=== PATIENT | female | born 1975 | race Caucasian/White ===

== ENCOUNTER → 2016-09-15 | Outpatient (REF) | payer BC | LOC: M LABNEURO 13:01 | PROVIDERS: ATTEND Internal Medicine | DX: E16.2 Hypoglycemia, unspecified (principal) ==

== ENCOUNTER 2017-05-06 12:31 | Emergency (ER) | payer BC ==
[~2017-05-06] VITALS: Ht 162.6 cm; Wt 75.0 kg
[2017-05-06] MEDS ORDERED: ZONI25CA2 (12:52)
[2017-05-06] MEDS ORDERED: ROPI0.25 (12:52)
[2017-05-06] MEDS ORDERED: ACAR25TA2 (12:52)
[2017-05-06] MEDS ORDERED: PANT20TA (12:52)
[2017-05-06] MEDS ORDERED: VENL75CA47 (12:52)
[2017-05-06] MEDS ORDERED: MYCO250C (12:52)
[2017-05-06] MEDS ORDERED: BUPR150T3 (12:52)
[2017-05-06] MEDS ORDERED: VALA1TAB2 (12:52)
[2017-05-06] MEDS ORDERED: FIORCAP3 PO (12:52)
[2017-05-06] MEDS ORDERED: diphenhydrAMINE INJ 50MG/ML VIAL (J1200) IV STA (13:06)
[2017-05-06] MEDS ORDERED: METOCLOPRAMIDE INJ 10MG/2ML VIAL (J2765) IV ONE (13:15)
[2017-05-06] MEDS ORDERED: NS 1,000 ML IV ONE (13:15)
[2017-05-06] MEDS ORDERED: methylPREDNISolone INJ 125 MG/2 ML VIAL (J2930) IV ONE (13:15)
[2017-05-06 13:42] LABS: BASO # 0.1 K/mm3 (0.0-0.2); BASO % 1.6 % (0.0-1.0); EOS # 0.1 K/mm3 (0.0-0.50); EOS % 2.5 % (0.0-3.0); LARGE UNSTAINED CELL # 0.1 K/mm3 (0.0-0.4); LARGE UNSTAINED CELL % 2.2 % (0.0-4.0); LYMPH # 1.3 K/mm3 (1.5-4.5); LYMPH % 32.7 % (24.0-44.0); MEAN CORPUSCULAR HEMOGLOBIN 35.6 pg (27.0-33.0); MEAN CORPUSCULAR HGB CONC 35.1 g/dl (32.0-36.5); MEAN CORPUSCULAR VOLUME 101.4 fl (80.0-96.0); MONO # 0.2 K/mm3 (0.0-0.8); MONO % 5.6 % (0.0-5.0); NEUTROPHILS # 2.3 K/mm3 (1.8-7.7); NEUTROPHILS % 55.4 % (36.0-66.0); PLATELET COUNT, AUTOMATED 222 k/mm3 (150-450); RED CELL DISTRIBUTION WIDTH 12.7 % (11.5-14.5); WHITE BLOOD COUNT 4.1 K/mm3 (4.0-10.0)
[2017-05-06 14:02] LABS: ERYTHROCYTE SEDIMENTATION RATE 8 mm/hr (0-20)
[2017-05-06 14:05] LABS: ANION GAP 7 MEQ/L (8-16); BLOOD UREA NITROGEN 7 MG/DL (7-18); CALCIUM LEVEL 7.8 MG/DL (8.5-10.1); CARBON DIOXIDE LEVEL 26 MEQ/L (21-32); CHLORIDE LEVEL 108 MEQ/L (98-107); CREATININE FOR GFR 0.75 MG/DL (0.55-1.02); GLOMERULAR FILTRATION RATE > 60.0 (>58); GLUCOSE, FASTING 80 MG/DL (70-105); POTASSIUM SERUM 4.3 MEQ/L (3.5-5.1); SODIUM LEVEL 141 MEQ/L (136-145)
[2017-05-06] MEDS ORDERED: KETOROLAC 30 MG/ML VIAL (J1885) IV ONE (14:30)
--- NOTE | 2017-05-06 14:39 | REP ---
CT BRAIN WITHOUT IV CONTRAST: CT brain is performed without IV contrast. The ventricles are normal in size and position with no midline shift or mass effect. Mcclure/white differentiation is well maintained. There is no acute hemorrhage. There is no extra-axial fluid collection. Bone window examination is unremarkable. IMPRESSION: Negative noncontrast CT brain. Signed by Ever Mcclure MD 05/06/2017 07:18 P
[2017-05-06 14:54] VITALS: BP 95/55
[2017-05-09 00:06] LABS: Lyme Disease IgG/IgM Antibodie <0.91 ISR (0.00-0.90); Lyme Disease IgM Ab Quantitati <0.80 index (0.00-0.79)
== END 2017-05-06 14:56 | disposition home or self-care (01) ==
LOC: M ED 12:31
DX: G43.909 Migraine, unspecified, not intractable, without status migrainosus (principal); D68.62 Lupus anticoagulant syndrome; F33.9 Major depressive disorder, recurrent, unspecified; Z79.899 Other long term (current) drug therapy; Z88.1 Allergy status to other antibiotic agents; Z88.8 Allergy status to other drugs, medicaments and biological substances; Z91.040 Latex allergy status
CPT/HCPCS: 70450; 80048; 85025; 85610; 85652; 85730; 86140; 86617; 96361; 96374; 96375; 99283; J1200; J1885; J2765; J2930

== ENCOUNTER → 2017-05-10 | Outpatient (REF) | payer BC ==
[~2017-05-10] MED LIST: ACAR25TA2; BUPR150T3; FIORCAP3 PO; MYCO250C; PANT20TA; ROPI0.25; VALA1TAB2; VENL75CA47; ZONI25CA2
[2017-05-10 19:20] LABS: BASO % 0.4 % (0.0-1.0); EOS # 0.1 10^3/uL (0.0-0.50); EOS % 1.1 % (0.0-3.0); IMMATURE GRANULOCYTE % 0.2 % (0-0); LYMPH # 2.7 10^3/uL (1.5-4.5); LYMPH % 26.4 % (24.0-44.0); MEAN CORPUSCULAR HEMOGLOBIN 34.5 pg (27.0-33.0); MEAN CORPUSCULAR HGB CONC 33.7 g/dl (32.0-36.5); MEAN CORPUSCULAR VOLUME 102.5 fl (80.0-96.0); MONO # 0.8 10^3/uL (0.0-0.8); MONO % 7.7 % (0.0-5.0); NEUTROPHILS # 6.6 10^3/uL (1.8-7.7); NEUTROPHILS % 64.2 % (36.0-66.0); PLATELET COUNT, AUTOMATED 265 10^3/uL (150-450); RED CELL DISTRIBUTION WIDTH 12.8 % (11.5-14.5); WHITE BLOOD COUNT 10.2 10^3/uL (4.0-10.0)
[2017-05-10 19:39] LABS: ALBUMIN 4.2 GM/DL (3.2-5.2); ALKALINE PHOSPHATASE 63 U/L (45-117); ALT/SGPT 37 U/L (12-78); ANION GAP 6 MEQ/L (8-16); AST/SGOT 14 U/L (15-37); BILIRUBIN,TOTAL 0.2 MG/DL (0.2-1.0); BLOOD UREA NITROGEN 8 MG/DL (7-18); CALCIUM LEVEL 9.5 MG/DL (8.5-10.1); CARBON DIOXIDE LEVEL 27 MEQ/L (21-32); CHLORIDE LEVEL 105 MEQ/L (98-107); CREATININE FOR GFR 0.81 MG/DL (0.55-1.02); GLOMERULAR FILTRATION RATE > 60.0 (>58); GLUCOSE, FASTING 86 MG/DL (70-105); POTASSIUM SERUM 3.8 MEQ/L (3.5-5.1); SODIUM LEVEL 138 MEQ/L (136-145); TOTAL PROTEIN 7.7 GM/DL (6.4-8.2)
[2017-05-10 20:45] LABS: ERYTHROCYTE SEDIMENTATION RATE 13 mm/hr (0-20)
== END ==
LOC: M LAB REF 18:25
PROVIDERS: ATTEND Psychiatry & Neurology Neurology
DX: R51 Headache (principal)

== ENCOUNTER → 2018-03-12 | Outpatient (REF) | payer OTHER ==
[2018-03-12 12:55] LABS: FERRITIN 15 NG/ML (8-252)
[2018-03-12 12:59] LABS: FOLATE 14.3 NG/ML; VITAMIN B12 LEVEL 268 PG/ML
== END ==
LOC: M LAB REF 11:57
DX: Z98.84 Bariatric surgery status (principal)

== ENCOUNTER → 2018-03-12 | Outpatient (REF) | payer OTHER ==
[2018-03-12 18:21] LABS: TOTAL 25(OH) VITAMIN D 26.8 NG/ML (30.0-100.0)
== END ==
LOC: M LAB REF 17:00
DX: Z98.84 Bariatric surgery status (principal)

== ENCOUNTER → 2018-11-19 | Outpatient (REF) | payer BC ==
[~2018-11-19] MED LIST changes: -PANT20TA; +PANT20TA2; -ROPI0.25; +ROPI0.253
[2018-11-19 12:32] LABS: HEMATOCRIT 36.6 % (36.0-47.0); MEAN CORPUSCULAR HEMOGLOBIN 32.2 pg (27.0-33.0); MEAN CORPUSCULAR HGB CONC 32.8 g/dl (32.0-36.5); MEAN CORPUSCULAR VOLUME 98.1 fl (80.0-96.0); PLATELET COUNT, AUTOMATED 235 10^3/uL (150-450); RED BLOOD COUNT 3.73 10^6/uL (4.00-5.40); WHITE BLOOD COUNT 4.3 10^3/uL (4.0-10.0)
[2018-11-19 12:39] LABS: ALT/SGPT 31 U/L (12-78); BLOOD UREA NITROGEN 6 MG/DL (7-18); C REACTIVE PROTEIN QUANTITATIV < 0.30 MG/DL (0.00-0.30); CALCIUM LEVEL 8.7 MG/DL (8.5-10.1); CARBON DIOXIDE LEVEL 28 MEQ/L (21-32); CHLORIDE LEVEL 106 MEQ/L (98-107); CHOLESTEROL LEVEL 182 MG/DL (<200); CHOLESTEROL RISK RATIO 1.915 (<5); COMPLEMENT C3 97 MG/DL (90-180); COMPLEMENT C4 22 MG/DL (10-40); CREATININE FOR GFR 0.74 MG/DL (0.55-1.30); GLOMERULAR FILTRATION RATE > 60.0 (>58); GLUCOSE, FASTING 92 MG/DL (70-100); HDL CHOLESTEROL 95 MG/DL (>40); LDL CHOLESTEROL 72 MG/DL (<100); NON-HDL-C 87 MG/DL; POTASSIUM SERUM 4.2 MEQ/L (3.5-5.1); SODIUM LEVEL 138 MEQ/L (136-145); TRIGLYCERIDES LEVEL 73 MG/DL (<150)
[2018-11-19 13:09] LABS: ERYTHROCYTE SEDIMENTATION RATE 17 mm/hr (0-20)
[2018-11-21 00:07] LABS: ANA (HEP2) Positive (.); ANTI DOUBLE STRAND-DNA AB 3 IU/mL (0-9)
== END ==
LOC: M LABDRAWP 11:24
PROVIDERS: ATTEND Internal Medicine
DX: M32.10 Systemic lupus erythematosus, organ or system involvement unspecified (principal); D50.9 Iron deficiency anemia, unspecified; M06.4 Inflammatory polyarthropathy

== ENCOUNTER → 2019-03-22 | Outpatient (CLI) | payer BC ==
[~2019-03-22] MED LIST changes: -VALA1TAB2; +VALA1TAB64; +ZONI25CA13; -ZONI25CA2
[2019-03-22 17:08] LABS: BASO # 0.1 10^3/uL (0.0-0.2); BASO % 1.8 % (0.0-1.0); EOS # 0.1 10^3/uL (0.0-0.50); EOS % 1.6 % (0.0-3.0); HEMATOCRIT 37.4 % (36.0-47.0); HEMOGLOBIN 12.3 g/dl (12.0-15.5); LYMPH # 1.6 10^3/uL (1.5-4.5); LYMPH % 37.5 % (24.0-44.0); MEAN CORPUSCULAR HEMOGLOBIN 32.5 pg (27.0-33.0); MEAN CORPUSCULAR HGB CONC 32.9 g/dl (32.0-36.5); MEAN CORPUSCULAR VOLUME 98.7 fl (80.0-96.0); MONO # 0.4 10^3/uL (0.0-0.8); MONO % 9.7 % (0.0-5.0); NEUTROPHILS # 2.1 10^3/uL (1.8-7.7); NEUTROPHILS % 49.2 % (36.0-66.0); PLATELET COUNT, AUTOMATED 253 10^3/uL (150-450); RED BLOOD COUNT 3.79 10^6/uL (4.00-5.40); WHITE BLOOD COUNT 4.4 10^3/uL (4.0-10.0)
[2019-03-22 17:19] LABS: THYROID STIMULATING HORMONE 1.28 uIU/ML (0.358-3.740)
[2019-03-24 10:56] LABS: TOTAL 25(OH) VITAMIN D 21.3 NG/ML (30.0-100.0)
[2019-03-24 11:37] LABS: FOLATE 7.3 NG/ML
== END ==
LOC: M ADAMS 10:50
PROVIDERS: ATTEND Internal Medicine
DX: D50.9 Iron deficiency anemia, unspecified (principal)

== ENCOUNTER 2019-10-22 16:47 | Emergency (ER) | payer BC ==
[~2019-10-22] VITALS: Ht 162.6 cm; Wt 76.3 kg
[~2019-10-22 16:47] MED LIST changes: +VALA1TAB5; -VALA1TAB64
[2019-10-22] MEDS ORDERED: [UNRECOGNIZED DRUG - CODE] (16:57)
--- NOTE | 2019-10-22 18:14 | REPVR ---
PROCEDURE INFORMATION: Exam: CT Head Without Contrast Exam date and time: 10/22/2019 5:37 PM Age: 44 years old Clinical indication: Pain; Headache; Additional info: Dizziness TECHNIQUE: Imaging protocol: Computed tomography of the head without contrast. Radiation optimization: All CT scans at this facility use at least one of these dose optimization techniques: automated exposure control; mA and/or kV adjustment per patient size (includes targeted exams where dose is matched to clinical indication); or iterative reconstruction. COMPARISON: CT Head without contrast 05/06/2017 1:09 PM FINDINGS: Brain: No acute intracranial hemorrhage, cerebral edema, or midline shift. Ventricles: No hydrocephalus. Bones/joints: No acute fracture. Sinuses: No acute sinusitis. Mastoid air cells: Visualized mastoid air cells are well aerated. Soft tissues: Unremarkable. IMPRESSION: No acute intracranial abnormality. Electronically signed by: See Alejandre On 10/22/2019 18:14:38 PM
[2019-10-22 18:33] LABS: BASO # 0.1 10^3/uL (0.0-0.2); BASO % 1.4 % (0.0-1.0); EOS # 0.1 10^3/uL (0.0-0.5); EOS % 2.1 % (0.0-3.0); HEMATOCRIT 33.3 % (36.0-47.0); HEMOGLOBIN 10.8 g/dl (12.0-15.5); LYMPH # 1.8 10^3/uL (1.5-5.0); LYMPH % 43.9 % (24.0-44.0); MEAN CORPUSCULAR HEMOGLOBIN 31.4 pg (27.0-33.0); MEAN CORPUSCULAR HGB CONC 32.4 g/dl (32.0-36.5); MEAN CORPUSCULAR VOLUME 96.8 fl (80.0-96.0); MONO # 0.5 10^3/uL (0.0-0.8); MONO % 10.7 % (0.0-5.0); NEUTROPHILS # 1.7 10^3/uL (1.5-8.5); NEUTROPHILS % 41.7 % (36.0-66.0); PLATELET COUNT, AUTOMATED 232 10^3/uL (150-450); RED BLOOD COUNT 3.44 10^6/uL (4.00-5.40); WHITE BLOOD COUNT 4.2 10^3/uL (4.0-10.0)
[2019-10-22] MEDS ORDERED: TROPICAMIDE 0.5% OPHTH SOLN 15 ML OD ONE (19:30)
[2019-10-22] MEDS ORDERED: TETRACAINE 0.5% OPHTH SOLN 4ML OD ONE (19:30)
[2019-10-22 20:45] LABS: ALBUMIN 3.8 GM/DL (3.2-5.2); ALT/SGPT 37 U/L (12-78); BILIRUBIN,DIRECT < 0.1 MG/DL (0.0-0.2); BILIRUBIN,TOTAL 0.2 MG/DL (0.2-1.0); BLOOD UREA NITROGEN 9 MG/DL (7-18); CALCIUM LEVEL 8.8 MG/DL (8.5-10.1); CARBON DIOXIDE LEVEL 28 MEQ/L (21-32); CHLORIDE LEVEL 107 MEQ/L (98-107); CREATININE FOR GFR 0.64 MG/DL (0.55-1.30); GLOMERULAR FILTRATION RATE > 60.0 (>58); GLUCOSE, FASTING 82 MG/DL (70-100); POTASSIUM SERUM 4.1 MEQ/L (3.5-5.1); SODIUM LEVEL 139 MEQ/L (136-145)
--- NOTE | 2019-10-22 21:02 | ECGEPIP ---
[facility] - ED Test Date: 2019-10-22 Pat Name: CRISTIANA MANUEL Department: Room: - Gender: Female Manager Rehab: ab : 1975 Requested By: BERNABE Mehta Order Number: [id number] Reading MD: Mahi Mckeon Measurements Intervals [place] Rate: 64 P: 18 [place]: 129 QRS: 39 QRSD: 88 T: 31 QT: 428 QTc: 445 Interpretive Statements SINUS RHYTHM NO PRIOR Electronically Signed on 10-22-2019 21:02:01 EDT by Mahi Mckeon
[2019-10-22 21:10] LABS: ERYTHROCYTE SEDIMENTATION RATE 20 mm/hr (0-20)
[2019-10-22] MEDS ORDERED: NS 1,000 ML IV ONE (21:15)
[2019-10-22 22:30] VITALS: BP 115/69; O2SAT 100
[2019-10-22] MEDS ORDERED: KETOROLAC 30 MG/ML VIAL (J1885) IV ONE (22:45)
== END 2019-10-22 23:09 | disposition home or self-care (01) ==
LOC: M ED 16:47
DX: G43.819 Other migraine, intractable, without status migrainosus (principal); R42 Dizziness and giddiness; M32.9 Systemic lupus erythematosus, unspecified; K75.4 Autoimmune hepatitis; F32.9 Major depressive disorder, single episode, unspecified; F41.9 Anxiety disorder, unspecified; Z88.8 Allergy status to other drugs, medicaments and biological substances; Z91.040 Latex allergy status
CPT/HCPCS: 70450; 80047; 80048; 80076; 85025; 85652; 93005; 96361; 96374; 99285; J1885

== ENCOUNTER → 2019-12-19 | Outpatient (CLI) | payer BC ==
[~2019-12-19] MED LIST changes: +[UNRECOGNIZED DRUG - CODE]
[2019-12-19 18:45] LABS: BASO # 0.1 10^3/uL (0.0-0.2); BASO % 1.6 % (0.0-1.0); EOS # 0.1 10^3/uL (0.0-0.5); EOS % 1.3 % (0.0-3.0); HEMATOCRIT 36.4 % (36.0-47.0); HEMOGLOBIN 11.8 g/dl (12.0-15.5); LYMPH # 1.7 10^3/uL (1.5-5.0); LYMPH % 37.7 % (24.0-44.0); MEAN CORPUSCULAR HEMOGLOBIN 32.4 pg (27.0-33.0); MEAN CORPUSCULAR HGB CONC 32.4 g/dl (32.0-36.5); MONO # 0.5 10^3/uL (0.0-0.8); MONO % 11.5 % (0.0-5.0); NEUTROPHILS # 2.2 10^3/uL (1.5-8.5); NEUTROPHILS % 47.9 % (36.0-66.0); PLATELET COUNT, AUTOMATED 240 10^3/uL (150-450); RED BLOOD COUNT 3.64 10^6/uL (4.00-5.40); WHITE BLOOD COUNT 4.5 10^3/uL (4.0-10.0)
[2019-12-19 19:09] LABS: ALT/SGPT 27 U/L (12-78); C REACTIVE PROTEIN QUANTITATIV 0.31 MG/DL (0.00-0.30); COMPLEMENT C3 102 MG/DL (90-180); COMPLEMENT C4 21 MG/DL (10-40); CREATININE FOR GFR 0.74 MG/DL (0.55-1.30); GLOMERULAR FILTRATION RATE > 60.0 (>58)
[2019-12-19 19:12] LABS: ERYTHROCYTE SEDIMENTATION RATE 16 mm/hr (0-20)
[2019-12-23 14:11] LABS: ANTI DS-DNA AB Negative (Negative)
== END ==
LOC: M PLALAB 15:27
PROVIDERS: ATTEND Physician Assistant Medical
DX: M32.9 Systemic lupus erythematosus, unspecified (principal); Z79.899 Other long term (current) drug therapy

== ENCOUNTER → 2020-05-18 | Outpatient (CLI) | payer BC ==
[~2020-05-18] MED LIST changes: -PANT20TA2; +PANT20TA6
[2020-05-18 08:13] LABS: BASO # 0.1 10^3/uL (0.0-0.2); BASO % 1.6 % (0.0-1.0); EOS # 0.1 10^3/uL (0.0-0.5); EOS % 2.1 % (0.0-3.0); HEMATOCRIT 33.7 % (36.0-47.0); HEMOGLOBIN 10.7 g/dl (12.0-15.5); LYMPH # 1.5 10^3/uL (1.5-5.0); LYMPH % 40.2 % (24.0-44.0); MEAN CORPUSCULAR HEMOGLOBIN 31.3 pg (27.0-33.0); MEAN CORPUSCULAR HGB CONC 31.8 g/dl (32.0-36.5); MEAN CORPUSCULAR VOLUME 98.5 fl (80.0-96.0); MONO # 0.4 10^3/uL (0.0-0.8); MONO % 11.3 % (0.0-5.0); NEUTROPHILS # 1.7 10^3/uL (1.5-8.5); NEUTROPHILS % 44.3 % (36.0-66.0); PLATELET COUNT, AUTOMATED 257 10^3/uL (150-450); RED BLOOD COUNT 3.42 10^6/uL (4.00-5.40); WHITE BLOOD COUNT 3.7 10^3/uL (4.0-10.0)
[2020-05-18 08:53] LABS: ALBUMIN 3.7 GM/DL (3.2-5.2); ALT/SGPT 30 U/L (12-78); BILIRUBIN,TOTAL 0.4 MG/DL (0.2-1.0); BLOOD UREA NITROGEN 10 MG/DL (7-18); CALCIUM LEVEL 8.7 MG/DL (8.5-10.1); CARBON DIOXIDE LEVEL 30 MEQ/L (21-32); CHLORIDE LEVEL 104 MEQ/L (98-107); CHOLESTEROL LEVEL 201 MG/DL (<200); CHOLESTEROL RISK RATIO 1.717 (<5); CREATININE FOR GFR 0.91 MG/DL (0.55-1.30); FERRITIN 9 NG/ML (8-252); GLOMERULAR FILTRATION RATE > 60.0 (>58); GLUCOSE, FASTING 87 MG/DL (70-100); HDL CHOLESTEROL 117 MG/DL (>40); LDL CHOLESTEROL 76 MG/DL (<100); NON-HDL-C 84 MG/DL; POTASSIUM SERUM 4.1 MEQ/L (3.5-5.1); SODIUM LEVEL 139 MEQ/L (136-145); TOTAL PROTEIN 6.9 GM/DL (6.4-8.2); TRIGLYCERIDES LEVEL 39 MG/DL (<150)
[2020-05-18 08:54] LABS: TOTAL 25(OH) VITAMIN D 30.4 NG/ML (30.0-100.0); VITAMIN B12 LEVEL 215 PG/ML
[2020-05-18 08:55] LABS: FOLATE 5.8 NG/ML
[2020-05-19 10:16] LABS: MAGNESIUM LEVEL 2.3 MG/DL (1.8-2.4)
== END ==
LOC: M LAB 07:13
PROVIDERS: ATTEND Internal Medicine
DX: G25.81 Restless legs syndrome (principal); D64.9 Anemia, unspecified; R01.1 Cardiac murmur, unspecified; R60.0 Localized edema; E55.9 Vitamin D deficiency, unspecified

== ENCOUNTER 2020-06-20 01:05 | Emergency (ER) | payer BC ==
[~2020-06-20] VITALS: Ht 162.6 cm; Wt 78.4 kg
[2020-06-20 01:06] VITALS: BP 149/74
--- NOTE | 2020-06-20 02:42 | REPVR ---
PROCEDURE INFORMATION: Exam: XR Left Shoulder Exam date and time: 06/20/2020 1:41 AM Age: 45 years old Clinical indication: Fall; Additional info: Fall, obvious dislocation TECHNIQUE: Imaging protocol: XR Left shoulder. Views: 2 or more views. COMPARISON: No relevant prior studies available. FINDINGS: Bones/joints: There is no fracture or dislocation of the left shoulder. The glenohumeral alignment is anatomic. No widening of the acromioclavicular joint space or coracoclavicular space is identified. No arthropathy is noted. The acromion has a concave shape (type II acromion). The acromial orientation is mildly laterally downsloping with respect to the distal end of the clavicle. Soft tissues: Unremarkable. No calcific densities are seen in the rotator cuff or subacromial subdeltoid bursa to suggest calcific tendinitis or calcific subacromial subdeltoid bursitis. IMPRESSION: No fracture or dislocation of the left shoulder. Electronically signed by: Donovan Cameron On 06/20/2020 02:41:53 AM
== END 2020-06-20 07:49 | disposition home or self-care (01) ==
LOC: M ED 01:05
DX: S20.212A Contusion of left front wall of thorax, initial encounter (principal); X58.XXXA Exposure to other specified factors, initial encounter; Y92.009 Unspecified place in unspecified non-institutional (private) residence as the place of occurrence of the external cause; F41.1 Generalized anxiety disorder; F32.9 Major depressive disorder, single episode, unspecified; Z88.1 Allergy status to other antibiotic agents; Z88.8 Allergy status to other drugs, medicaments and biological substances; Z91.040 Latex allergy status; Z79.899 Other long term (current) drug therapy

== ENCOUNTER → 2020-08-16 | Outpatient (CLI) | payer SELFPAY ==
[~2020-08-16] MED LIST changes: +[UNRECOGNIZED DRUG - CODE]; -[UNRECOGNIZED DRUG - CODE]
== END ==
LOC: M LABSMTC 11:41
PROVIDERS: ATTEND Pediatrics
DX: Z20.828 Contact with and (suspected) exposure to other viral communicable diseases (principal)

== ENCOUNTER → 2020-08-30 | Outpatient (REF) | payer BC ==
[~2020-08-30] MED LIST changes: -BUPR150T3; +BUPR150T4
[2020-08-30 12:18] LABS: BASO # 0.1 10^3/uL (0.0-0.2); BASO % 1.4 % (0.0-1.0); EOS # 0.1 10^3/uL (0.0-0.5); EOS % 2.3 % (0.0-3.0); HEMATOCRIT 35.3 % (36.0-47.0); HEMOGLOBIN 11.4 g/dl (12.0-15.5); LYMPH # 1.8 10^3/uL (1.5-5.0); LYMPH % 41.3 % (24.0-44.0); MEAN CORPUSCULAR HEMOGLOBIN 32.4 pg (27.0-33.0); MEAN CORPUSCULAR HGB CONC 32.3 g/dl (32.0-36.5); MEAN CORPUSCULAR VOLUME 100.3 fl (80.0-96.0); MONO # 0.5 10^3/uL (0.0-0.8); MONO % 10.3 % (0.0-5.0); NEUTROPHILS % 44.5 % (36.0-66.0); PLATELET COUNT, AUTOMATED 254 10^3/uL (150-450); RED BLOOD COUNT 3.52 10^6/uL (4.00-5.40); WHITE BLOOD COUNT 4.4 10^3/uL (4.0-10.0)
[2020-08-30 13:22] LABS: BLOOD UREA NITROGEN 8 MG/DL (7-18); CALCIUM LEVEL 8.8 MG/DL (8.5-10.1); CARBON DIOXIDE LEVEL 27 MEQ/L (21-32); CHLORIDE LEVEL 105 MEQ/L (98-107); CREATININE FOR GFR 0.64 MG/DL (0.55-1.30); FERRITIN 8 NG/ML (8-252); GLOMERULAR FILTRATION RATE > 60.0 (>58); GLUCOSE, FASTING 83 MG/DL (70-100); MAGNESIUM LEVEL 2.1 MG/DL (1.8-2.4); POTASSIUM SERUM 4.3 MEQ/L (3.5-5.1); SODIUM LEVEL 137 MEQ/L (136-145)
== END ==
LOC: M LAB REF 11:27
PROVIDERS: ATTEND Internal Medicine
DX: Z00.00 Encounter for general adult medical examination without abnormal findings (principal); D64.9 Anemia, unspecified; Z98.84 Bariatric surgery status

== ENCOUNTER → 2021-01-23 | Outpatient (CLI) | payer BC ==
[~2021-01-23] MED LIST changes: +BUPR150T12; -BUPR150T4; +HYDR-3490 PO; +THERTAB52 PO; +VITATAB74 PO
== END ==
LOC: M LABSMTC 09:05
PROVIDERS: ATTEND Anesthesiology
DX: Z01.812 Encounter for preprocedural laboratory examination (principal); Z20.822 Contact with and (suspected) exposure to COVID-19

== ENCOUNTER 2021-01-28 11:48 | Day surgery (SDC) | payer BC ==
[2021-01-28] VITALS (7 sets, daily range): BP systolic 117–138; BP diastolic 64–73
[~2021-01-28] VITALS: Ht 165.1 cm; Wt 74.8 kg
[2021-01-28] MEDS: buPROPion **XL** TABLET 150MG (WELLBUTRIN XL) PO SCH (09:00)
[~2021-01-28 11:48] MED LIST changes: -BUPR150T12; +BUPR150T12 PO; +LIDOCAINE 1% MDV 20ML VIAL SQ PRN; +LR 1,000 ML IV ONE; -MYCO250C; +MYCO250C PO; -VENL75CA47; +VENL75CA47 PO; +ceFAZolin SOD 2 GM in IV 1 EA IV ONE
[2021-01-28] MEDS ORDERED: MIDAZOLAM INJ 2MG/2ML VIAL (J2250 PER 1MG) As Ordered ONE (12:25)
[2021-01-28] MEDS ORDERED: fentaNYL 100 MCG/2 ML INJECTION (J3010) As Ordered ONE ×2 (12:26→16:20)
[2021-01-28 12:39] LABS: HEMATOCRIT 37.3 % (36.0-47.0); HEMOGLOBIN 12.4 g/dl (12.0-15.5); MEAN CORPUSCULAR HEMOGLOBIN 32.3 pg (27.0-33.0); MEAN CORPUSCULAR HGB CONC 33.2 g/dl (32.0-36.5); MEAN CORPUSCULAR VOLUME 97.1 fl (80.0-96.0); PLATELET COUNT, AUTOMATED 280 10^3/uL (150-450); RED BLOOD COUNT 3.84 10^6/uL (4.00-5.40); WHITE BLOOD COUNT 4.2 10^3/uL (4.0-10.0)
[2021-01-28] MEDS ORDERED: LIDOCAINE 2% 100MG/5ML SDV (FOR ANES.) As Ordered ONE (13:04)
[2021-01-28] MEDS ORDERED: SCOPOLAMINE 1MG TRANSDERMAL PATCH As Ordered ONE (13:26)
[2021-01-28] MEDS ORDERED: propofoL 200 MG/20 ML VIAL As Ordered ONE ×2 (13:43→13:49)
[2021-01-28] MEDS ORDERED: METOCLOPRAMIDE INJ 10MG/2ML VIAL (J2765 PER 1) As Ordered ONE (13:44)
[2021-01-28] MEDS ORDERED: ROCURONIUM BROMIDE 50 MG/5 ML VIAL As Ordered ONE ×2 (13:44→14:40)
[2021-01-28] MEDS ORDERED: ONDANSETRON 4MG/2ML VIAL As Ordered ONE (13:44)
[2021-01-28] MEDS ORDERED: dexameTHASONE 4 MG/ML 1ML VIAL (J1100 PER 1MG) As Ordered ONE (13:44)
[2021-01-28] MEDS ORDERED: ACETAMINOPHEN 1000MG 100ML IV BTL (OFIRMEV) (J0131 PER 10MG) As Ordered ONE (13:48)
[2021-01-28] MEDS ORDERED: HYDROmorphone HCL 2 MG/ML 1ML VIAL (J1170) As Ordered ONE (14:03)
[2021-01-28] MEDS ORDERED: MORPHINE 1MG/ML IN 0.9% NACL 100ML IV BAG As Ordered ONE (16:19)
[2021-01-28] MEDS ORDERED: diphenhydrAMINE 50MG/ML VIAL (J1200) IV PRN (16:25)
[2021-01-28] MEDS ORDERED: METOCLOPRAMIDE INJ 10MG/2ML VIAL (J2765 PER 1) IV PRN (16:25)
[2021-01-28] MEDS ORDERED: ONDANSETRON 4MG/2ML VIAL IV PRN (16:25)
[2021-01-28] MEDS ORDERED: LR 1,000 ML IV SCH (16:25)
[2021-01-28] MEDS ORDERED: fentaNYL 100 MCG/2 ML INJECTION (J3010) IV PRN (16:25)
[2021-01-28] MEDS ORDERED: NS 1,000 ML IV SCH (16:25)
[2021-01-28] MEDS ORDERED: MORPHINE 1MG/ML IN 0.9% NACL 100ML IV BAG IV PRN (16:25)
[2021-01-28] MEDS ORDERED: EPIDURAL/PCA KEYS XX PRN (16:25)
[2021-01-28] MEDS ORDERED: NALOXONE INJ 0.4MG/1ML VIAL (J2310 PER 1MG) IV PRN (16:25)
[2021-01-28] MEDS ORDERED: NALBUPHINE HCL 10 MG/ML AMP (J2300) IV PRN (16:25)
[2021-01-28] MEDS ORDERED: PERCOCET 5MG/325MG TAB PO PRN (16:25)
[2021-01-28] MEDS ORDERED: IBUPROFEN 600MG TAB PO PRN (16:30)
[2021-01-28] MEDS ORDERED: PRAMIPEXOLE 0.25 MG TAB PO SCH (21:00)
[2021-01-29] MEDS: LR 1,000 ML IV SCH ×2 (00:30→01:00)
[2021-01-29 02:00] VITALS: BP 100/58
[2021-01-29 06:00] VITALS: BP 120/66
[2021-01-29] MEDS ORDERED: NORCO, ANEXSIA 5/325MG TABLET (HYDROcodone/ACETAMINOPHEN) PO PRN (06:00)
[2021-01-29 08:00] VITALS: BP 121/59
[2021-01-29 08:05] LABS: HEMATOCRIT 33.3 % (36.0-47.0); HEMOGLOBIN 10.9 g/dl (12.0-15.5); MEAN CORPUSCULAR HEMOGLOBIN 32.3 pg (27.0-33.0); MEAN CORPUSCULAR HGB CONC 32.7 g/dl (32.0-36.5); MEAN CORPUSCULAR VOLUME 98.8 fl (80.0-96.0); PLATELET COUNT, AUTOMATED 223 10^3/uL (150-450); RED BLOOD COUNT 3.37 10^6/uL (4.00-5.40); WHITE BLOOD COUNT 6.2 10^3/uL (4.0-10.0)
[2021-01-29] MEDS ORDERED: VENLAFAXINE **XR** 75MG CAPSULE PO SCH (09:00)
[2021-01-29] MEDS: buPROPion **XL** TABLET 150MG (WELLBUTRIN XL) PO SCH (10:02)
[2021-01-29] MEDS ORDERED: IBUP-1114 PO (10:11)
[2021-01-29] MEDS ORDERED: HYDR-3715 PO (10:11)
--- NOTE | 2021-01-31 08:21 | RO ---
OPERATIVE NOTE DATE OF OPERATION: 01/28/2021 PREOPERATIVE DIAGNOSIS AND INDICATIONS FOR SURGERY: Bleeding and pain, failed conservative efforts. POSTOPERATIVE DIAGNOSIS: Bleeding and pain, failed conservative efforts. 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 PROCEDURE: Robotic-assisted hysterectomy with right salpingo-oophorectomy and left removal of tube. She only had the distal tube on the left remaining. She kept her left ovary and, of course, she had some scar tissue from her previous tubal ligation but we did remove the fimbria and the proximal stump. SURGEON: Harriet Aggarwal MD DIP TANKER: None. ANESTHESIA: General endotracheal anesthesia. BRIEF DESCRIPTION OF PROCEDURE AND FINDINGS: Lanny was brought to the operating room where sufficient general endotracheal anesthesia was induced. She was prepped, draped and positioned in the usual sterile fashion. Uterine manipulator placed and Rush catheter with the ability to back-fill was placed and attention was then turned to the abdomen. A transverse incision was made below the umbilicus along the line of some of her previous surgery scars. Sharp and blunt dissection were continued through the subcutaneous tissue to the level of the rectus fascia which was elevated to the wound, transversely incised, secured with 0 Vicryl retention sutures, and then the peritoneal cavity was entered under direct visualization. We were also able to palpate with the pinkie and feel to the left side of the umbilicus and extending inferior and superior to the umbilicus there was considerable adhesions. We were able to place the Flaquita under direct visualization and CO2 insufflation was then begun. With the camera, we were able to see that we had access to the pelvis but not to the left upper quadrant and those adhesions extended low enough that we needed to work from the right side to see where the left side lower port could be placed. But, we placed the right-sided port and then superiorly on the right placed the doctor's assistant port there instead of on the left side because of those adhesions. We were able to do that in an uncomplicated fashion and then using the lower right side port we were able to see to place the left side port. These are extensive adhesions. She was somewhat aware that she had them. They were dense and appeared vascular and we worked around them. There did not appear to be any possibility of a volvulus or long-term problem there. There was not a hernia that I could see, just tissue plastered to the anterior abdominal wall. Pictures were taken to document this. We also saw adhesions over the lower uterine segment bringing the bladder up over the uterus and, of course, scarring from her previous tubal ligation essentially eliminating the mid portion of both tubes. We went ahead with Trendelenburg and docked the robot. It should be noted that the peritoneal surfaces themselves were normal and shiny in appearance and there was no ascites, exudate nor excrescences, just the adhesions as already noted and the scarring as expected with her previous surgical history. This did mean we had to work very close to the tissues. The patient is not tremendously tall and the adhesions would extend over into our view so we had to work below them, which was very, very close to the uterus but it was certainly possible to do. Working from the robot console after the robot was docked, we isolated the distal portion of the fimbria of the left tube and went ahead and removed that and passed it out the assisted port. Then, isolated the uteroovarian suspensory ligament, cauterized and transected this and then worked through the broad ligament to the round where we cauterized and transected this. We did see some foreshortening anteriorly and we back-filled the bladder and the bladder was well up on the lower uterine segment so we marked the lower uterine segment above this level. We subsequently found that there were quite a bit of adhesion there underneath peritoneum so it was not as visible initially until we back-filled but we definitely worked around that. We then went onto the right side where we isolated the infundibulopelvic ligament, cauterized it, transected it, worked through the broad ligament toward the round and cauterized and transected this as well, and then worked down laterally as far as we could until we reached that level of adhesion and then carefully working under out limited access, we went ahead and freed those adhesions back-filling as necessary anteriorly and also we were able to flip the uterus forward. With much better access posteriorly, we could see the cup of the uterine manipulator quite well and we went ahead and brought down the posterior peritoneum to bring the ureters away and then made the colpotomy initially posterior, marked the posterior uterus in our expected line of dissection knowing that we would have to come down along the uteri a little more than was typical because we had to start higher to avoid that bladder and then work our way down as we were able to dissect the bladder free. Having started the colpotomy and marked the posterior, we went back to the front, continued that dissection. There were several pockets of adhesions but when we back-filled, we could see clearly that there was no perforation of the bladder and, of course, this is not a cancer surgery so we left some adhesions behind attached rather than dissect them off and risk injury and cystotomy. So, we continued this dissection very cautiously and when we had the bladder free enough, we went ahead and cauterized the uterine vasculature and then carefully continued to dissect the bladder down and when we had full access with the bladder well away, we started the colpotomy in the front and then worked our way through where we had cauterized the uterine vasculature so we could join up with our dissection posteriorly, working both posterior to anterior and anterior to posterior as needed to optimize the dissection and vascular control because I did not want to be using extra cautery near this bladder. Fortunately, with patience we were able to free the uterus up and deliver it with the attached right ovary and tube. Again, we had already sent the left tube out and the left ovary is remaining. We then used V-Loc suture and sewed robotically to close the cuff and, of course, restrict the uterosacrals and sew the angle stitches, and again back-fill of the bladder confirmed absence of injury, and irrigated to clean the pelvis and let the pressure down a little to confirm hemostasis and then the procedure was ended. ESTIMATED BLOOD LOSS FOR THE PROCEDURE: About 30 mL. FLUID REPLACEMENT: Crystalloid. COMPLICATIONS: None. CONDITION AND DISPOSITION: Lanny tolerated the procedure well and was recovering in the recovery room in good condition.
== END 2021-01-29 11:40 | disposition home or self-care (01) ==
LOC: M SDC 11:48 → M PED 17:35 → M SDC 01-29 11:40
PROVIDERS: ATTEND Obstetrics & Gynecology
DX: R10.2 Pelvic and perineal pain (principal); N93.9 Abnormal uterine and vaginal bleeding, unspecified; N73.6 Female pelvic peritoneal adhesions (postinfective); M32.9 Systemic lupus erythematosus, unspecified; M35.00 Sjogren syndrome, unspecified; I73.00 Raynaud's syndrome without gangrene; G43.909 Migraine, unspecified, not intractable, without status migrainosus; L90.0 Lichen sclerosus et atrophicus; F32.9 Major depressive disorder, single episode, unspecified; Z98.84 Bariatric surgery status; R12 Heartburn; D64.9 Anemia, unspecified; E16.2 Hypoglycemia, unspecified; R01.1 Cardiac murmur, unspecified; M19.90 Unspecified osteoarthritis, unspecified site; F41.9 Anxiety disorder, unspecified; Z91.040 Latex allergy status; Z88.1 Allergy status to other antibiotic agents; Z88.8 Allergy status to other drugs, medicaments and biological substances; Z79.899 Other long term (current) drug therapy
CPT/HCPCS: 36415; 58571; 85027; 86850; 86900; 86901; 88307; 96360; 96361; J0131; J0690; J1100; J1170; J2250; J2405; J2765; J3010; S2900

== ENCOUNTER → 2021-05-17 | Outpatient (REF) ==
[~2021-05-17] MED LIST changes: +HYDR-3715 PO; +IBUP-1114 PO; -LIDOCAINE 1% MDV 20ML VIAL SQ PRN; -LR 1,000 ML IV ONE; -ceFAZolin SOD 2 GM in IV 1 EA IV ONE
== END ==
LOC: M EMP 09:59
PROVIDERS: ATTEND Family Medicine
DX: Z20.822 Contact with and (suspected) exposure to COVID-19 (principal)

== ENCOUNTER → 2021-05-20 | Outpatient (REF) ==
[2021-05-20 11:21] LABS: RSV AMPLIFICATION NEGATIVE (NEGATIVE)
== END ==
LOC: M EMP 10:19
PROVIDERS: ATTEND Family Medicine
DX: Z11.52 Encounter for screening for COVID-19 (principal)

== ENCOUNTER 2021-05-23 15:16 | Outpatient (CLI) | payer BC ==
[2021-05-23 16:05] VITALS: BP 130/75
[2021-05-23] MEDS ORDERED: diphenhydrAMINE 50MG/ML VIAL (J1200) IV PRN (16:05)
[2021-05-23] MEDS ORDERED: diphenhydrAMINE 25MG CAP PO ONE (16:05)
[2021-05-23] MEDS ORDERED: ALBUTEROL 90 MCG/ACT 8GM HFA INHALER INH PRN (16:05)
[2021-05-23] MEDS ORDERED: ALBUTEROL SULFATE 2.5 MG/0.5 ML INH NEB SOLN INH PRN (16:05)
[2021-05-23] MEDS ORDERED: BAMLANIVIMAB 700 MG, ETESEVIMAB 1,400 MG in NS 250 ML IV ONE (16:05)
[2021-05-23] MEDS ORDERED: ACETAMINOPHEN TAB 650MG DOSE (2X325MG) PO ONE (16:05)
[2021-05-23] MEDS ORDERED: ACETAMINOPHEN TAB 650MG DOSE (2X325MG) PO PRN (16:05)
[2021-05-23] MEDS ORDERED: methylPREDNISolone 125MG 2ML VIAL IV PRN (16:05)
[2021-05-23] MEDS ORDERED: NS 1,000 ML IV SCH (16:05)
[2021-05-23] MEDS ORDERED: EPINEPHrine INJ 1 MG/ML 1ML AMP IM PRN (16:05)
[2021-05-23 17:30] VITALS: BP 144/68
[2021-05-23 18:08] VITALS: BP 120/65
[2021-05-23 18:47] VITALS: BP 111/68
[2021-05-23 19:48] VITALS: BP 121/73
== END 2021-05-23 19:49 | disposition home or self-care (01) ==
LOC: M OPCLI4PR 15:16
PROVIDERS: ATTEND Internal Medicine
DX: U07.1 COVID-19 (principal); Z88.1 Allergy status to other antibiotic agents; Z91.040 Latex allergy status; Z79.899 Other long term (current) drug therapy

== ENCOUNTER → 2022-02-28 | Outpatient (REF) | payer BC ==
[2022-02-28 12:55] LABS: BASO # 0.1 10^3/uL (0.0-0.2); BASO % 1.5 % (0.0-1.0); EOS # 0.1 10^3/uL (0.0-0.5); EOS % 2.4 % (0.0-3.0); HEMATOCRIT 35.9 % (36.0-47.0); HEMOGLOBIN 11.4 g/dl (12.0-15.5); LYMPH # 1.6 10^3/uL (1.5-5.0); LYMPH % 35.5 % (24.0-44.0); MEAN CORPUSCULAR HEMOGLOBIN 29.5 pg (27.0-33.0); MEAN CORPUSCULAR HGB CONC 31.8 g/dl (32.0-36.5); MONO # 0.6 10^3/uL (0.0-0.8); MONO % 13.2 % (2.0-8.0); NEUTROPHILS # 2.2 10^3/uL (1.5-8.5); NEUTROPHILS % 47.2 % (36.0-66.0); PLATELET COUNT, AUTOMATED 326 10^3/uL (150-450); RED BLOOD COUNT 3.86 10^6/uL (4.00-5.40); WHITE BLOOD COUNT 4.6 10^3/uL (4.0-10.0)
== END ==
LOC: M LAB REF 12:19
PROVIDERS: ATTEND Physician Assistant Medical
DX: M32.9 Systemic lupus erythematosus, unspecified (principal); Z79.899 Other long term (current) drug therapy

== ENCOUNTER → 2022-03-20 | Outpatient (REF) | payer BC ==
[2022-03-20 13:49] LABS: BASO # 0.1 10^3/uL (0.0-0.2); BASO % 1.8 % (0.0-1.0); EOS # 0.1 10^3/uL (0.0-0.5); EOS % 2.7 % (0.0-3.0); LYMPH # 1.1 10^3/uL (1.5-5.0); LYMPH % 23.9 % (24.0-44.0); MEAN CORPUSCULAR HGB CONC 31.4 g/dl (32.0-36.5); MEAN CORPUSCULAR VOLUME 92.3 fl (80.0-96.0); MONO # 0.6 10^3/uL (0.0-0.8); MONO % 13.3 % (2.0-8.0); NEUTROPHILS # 2.6 10^3/uL (1.5-8.5); NEUTROPHILS % 58.1 % (36.0-66.0); PLATELET COUNT, AUTOMATED 330 10^3/uL (150-450); RED BLOOD COUNT 3.79 10^6/uL (4.00-5.40); WHITE BLOOD COUNT 4.5 10^3/uL (4.0-10.0)
[2022-03-20 14:27] LABS: ALBUMIN 3.7 GM/DL (3.2-5.2); ALT/SGPT 22 U/L (12-78); BLOOD UREA NITROGEN 11 MG/DL (7-18); C REACTIVE PROTEIN QUANTITATIV 0.42 MG/DL (0.00-0.30); CREATININE FOR GFR 0.74 MG/DL (0.55-1.30); GLOMERULAR FILTRATION RATE > 60.0 (>58)
[2022-03-20 14:36] LABS: ERYTHROCYTE SEDIMENTATION RATE 43 mm/hr (0-20)
[2022-03-21 04:19] LABS: COMPLEMENT C3 112 MG/DL (90-180); COMPLEMENT C4 28 MG/DL (10-40)
[2022-03-22 12:09] LABS: ANTI DS-DNA AB Negative (Negative)
== END ==
LOC: M LAB REF 12:03
PROVIDERS: ATTEND Physician Assistant
DX: M32.9 Systemic lupus erythematosus, unspecified (principal); Z79.899 Other long term (current) drug therapy

== ENCOUNTER → 2022-04-14 | Outpatient (CLI) | payer OTHER | LOC: M RAD 15:22 | PROVIDERS: ATTEND Internal Medicine | DX: M25.531 Pain in right wrist (principal); M32.10 Systemic lupus erythematosus, organ or system involvement unspecified; M35.00 Sjogren syndrome, unspecified ==

== ENCOUNTER → 2022-06-20 | Outpatient (REF) ==
[2022-06-20 14:00] LABS: RSV AMPLIFICATION NEGATIVE (NEGATIVE)
== END ==
LOC: M LABSMTC 10:25
PROVIDERS: ATTEND Family Medicine
DX: Z20.822 Contact with and (suspected) exposure to COVID-19 (principal)

== ENCOUNTER → 2022-06-22 | Outpatient (REF) | LOC: M LABSMTC 10:45 | PROVIDERS: ATTEND Family Medicine | DX: Z11.52 Encounter for screening for COVID-19 (principal) ==

== ENCOUNTER → 2022-09-28 | Outpatient (REF) | payer OTHER | LOC: M LAB REF 16:02 | PROVIDERS: ATTEND Internal Medicine | DX: M25.50 Pain in unspecified joint (principal) ==

== ENCOUNTER → 2023-01-29 | Outpatient (REF) | LOC: M EMP 09:08 | PROVIDERS: ATTEND Family Medicine | DX: Z20.822 Contact with and (suspected) exposure to COVID-19 (principal) ==

== ENCOUNTER → 2023-06-05 | Outpatient (CLI) | payer OTHER ==
[~2023-06-05] MED LIST changes: -ROPI0.253; +ROPI5TAB19
[2023-06-05 08:39] LABS: BASO # 0.1 10^3/uL (0.0-0.2); BASO % 2.7 % (0.0-1.0); EOS # 0.1 10^3/uL (0.0-0.5); EOS % 3.9 % (0.0-3.0); HEMOGLOBIN 10.3 g/dl (12.0-15.5); LYMPH # 0.7 10^3/uL (1.5-5.0); LYMPH % 26.4 % (24.0-44.0); MEAN CORPUSCULAR HEMOGLOBIN 28.6 pg (27.0-33.0); MEAN CORPUSCULAR HGB CONC 32.2 g/dl (32.0-36.5); MEAN CORPUSCULAR VOLUME 88.9 fl (80.0-96.0); MONO # 0.4 10^3/uL (0.0-0.8); MONO % 15.1 % (2.0-8.0); NEUTROPHILS # 1.3 10^3/uL (1.5-8.5); NEUTROPHILS % 51.9 % (36.0-66.0); PLATELET COUNT, AUTOMATED 319 10^3/uL (150-450); WHITE BLOOD COUNT 2.6 10^3/uL (4.0-10.0)
[2023-06-05 08:43] LABS: APPEARANCE, URINE CLEAR (CLEAR); BACTERIA, URINE AUTO 2+ (NEGATIVE); BILIRUBIN, URINE AUTO NEGATIVE (NEGATIVE); BLOOD, URINE BLOOD NEGATIVE (NEGATIVE); COLOR, URINE YELLOW (YELLOW); GLUCOSE, URINE (UA) AUTO NEGATIVE (NEGATIVE); KETONE, URINE AUTO NEGATIVE (NEGATIVE); LEUKOCYTE ESTERASE, URINE AUTO 3+ (NEGATIVE); NITRITE, URINE AUTO NEGATIVE (NEGATIVE); PROTEIN, URINE AUTO NEGATIVE (NEGATIVE); RBC, URINE AUTO 0 /HPF (0-3); SPECIFIC GRAVITY URINE AUTO 1.005 (1.002-1.035); SQUAMOUS EPITHELIAL CELL UR AU 0 /HPF (0-6); UROBILINOGEN, URINE AUTO 0.2 mg/dL (0.0-2.0); WBC, URINE AUTO 16 /HPF (0-3)
[2023-06-05 09:04] LABS: ALBUMIN 3.7 G/DL (3.2-5.2); ALKALINE PHOSPHATASE 77 U/L (46-116); ALT/SGPT 26 U/L (7.0-40); AST/SGOT 22 U/L (<34); BILIRUBIN,TOTAL 0.3 MG/DL (0.3-1.2); BLOOD UREA NITROGEN 6 MG/DL (9-23); CALCIUM LEVEL 8.8 MG/DL (8.5-10.1); CARBON DIOXIDE LEVEL 32 MMOL/L (20-31); CHLORIDE LEVEL 104 MMOL/L (98-107); CHOLESTEROL LEVEL 202 MG/DL (<200); CHOLESTEROL RISK RATIO 1.85 (<5); CREATININE FOR GFR 0.57 MG/DL (0.55-1.30); GLOMERULAR FILTRATION RATE > 60.0 (>51); GLUCOSE, FASTING 82 MG/DL (60-100); HDL CHOLESTEROL 108.8 MG/DL (>40); LDL CHOLESTEROL 80.2 MG/DL (<100); MAGNESIUM LEVEL 1.9 MG/DL (1.8-2.4); NON-HDL-C 93.2 MG/DL; POTASSIUM SERUM 4.3 MMOL/L (3.5-5.1); SODIUM LEVEL 141 MMOL/L (136-145); TOTAL PROTEIN 6.5 G/DL (5.7-8.2); TRIGLYCERIDES LEVEL 65 MG/DL (<150)
[2023-06-05 09:07] LABS: THYROID STIMULATING HORMONE 0.832 uIU/ML (0.55-4.78); THYROXINE (T4) 3.9 UG/DL (4.5-10.9)
[2023-06-05 09:08] LABS: FREE THYROXINE INDEX 1.2 % (1.3-4.8); T UPTAKE 31.8 % (22.5-37.0)
[2023-06-06 16:38] LABS: VITAMIN B12 LEVEL 193 PG/ML (211-911)
[2023-06-06 16:39] LABS: FERRITIN 5.8 NG/ML (7.3-270.7); FOLATE 10.2 NG/ML (>5.4)
== END ==
LOC: M LAB 07:13
PROVIDERS: ATTEND Physician Assistant
DX: E16.2 Hypoglycemia, unspecified (principal)

== ENCOUNTER → 2023-06-06 | Outpatient (REF) | payer OTHER ==
[2023-06-06 17:46] LABS: APPEARANCE, URINE CLEAR (CLEAR); BACTERIA, URINE AUTO NEGATIVE (NEGATIVE); BILIRUBIN, URINE AUTO NEGATIVE (NEGATIVE); BLOOD, URINE BLOOD NEGATIVE (NEGATIVE); COLOR, URINE YELLOW (YELLOW); GLUCOSE, URINE (UA) AUTO NEGATIVE (NEGATIVE); KETONE, URINE AUTO NEGATIVE (NEGATIVE); LEUKOCYTE ESTERASE, URINE AUTO NEGATIVE (NEGATIVE); NITRITE, URINE AUTO NEGATIVE (NEGATIVE); PROTEIN, URINE AUTO NEGATIVE (NEGATIVE); RBC, URINE AUTO 0 /HPF (0-3); SPECIFIC GRAVITY URINE AUTO 1.005 (1.002-1.035); SQUAMOUS EPITHELIAL CELL UR AU 0 /HPF (0-6); UROBILINOGEN, URINE AUTO 0.2 mg/dL (0.0-2.0); WBC, URINE AUTO 4 /HPF (0-3)
== END ==
LOC: M LAB REF 16:19
PROVIDERS: ATTEND Internal Medicine
DX: Z79.899 Other long term (current) drug therapy (principal)

== ENCOUNTER → 2023-07-19 | Outpatient (REF) | LOC: M EMP 10:53 | PROVIDERS: ATTEND Family Medicine | DX: Z11.52 Encounter for screening for COVID-19 (principal) ==

== ENCOUNTER → 2023-12-05 | Outpatient (REF) | payer OTHER ==
[2023-12-05 14:17] LABS: FERRITIN 8.5 NG/ML (7.3-270.7)
== END ==
LOC: M LAB REF 13:06
PROVIDERS: ATTEND Internal Medicine
DX: D72.819 Decreased white blood cell count, unspecified (principal); Z98.84 Bariatric surgery status

== ENCOUNTER → 2024-04-03 | Outpatient (CLI) | payer OTHER ==
[2024-04-03 18:10] LABS: BASO # 0.1 10^3/uL (0.0-0.2); BASO % 2.6 % (0.0-1.0); EOS # 0.1 10^3/uL (0.0-0.5); EOS % 2.3 % (0.0-3.0); HEMATOCRIT 39.1 % (36.0-47.0); HEMOGLOBIN 12.2 g/dl (12.0-15.5); LYMPH # 1.3 10^3/uL (1.5-5.0); LYMPH % 37.6 % (24.0-44.0); MEAN CORPUSCULAR HGB CONC 31.2 g/dl (32.0-36.5); MEAN CORPUSCULAR VOLUME 93.1 fl (80.0-96.0); MONO # 0.7 10^3/uL (0.0-0.8); MONO % 19.7 % (2.0-8.0); NEUTROPHILS # 1.3 10^3/uL (1.5-8.5); NEUTROPHILS % 37.5 % (36.0-66.0); PLATELET COUNT, AUTOMATED 378 10^3/uL (150-450); WHITE BLOOD COUNT 3.5 10^3/uL (4.0-10.0)
== END ==
LOC: M ADAMS 12:16
PROVIDERS: ATTEND Physician Assistant Medical
DX: R79.9 Abnormal finding of blood chemistry, unspecified (principal)

== ENCOUNTER → 2024-05-26 | Outpatient (REF) | payer OTHER ==
[2024-05-26 15:43] LABS: FOLATE 11.4 NG/ML (>5.4)
== END ==
LOC: M LAB REF 12:33
PROVIDERS: ATTEND Internal Medicine
DX: D64.9 Anemia, unspecified (principal)

== ENCOUNTER 2024-10-17 21:42 | Emergency (ER) | payer OTHER ==
[~2024-10-17] VITALS: Ht 154.9 cm; Wt 69.5 kg
[2024-10-17] MEDS ORDERED: ONDA-282 PO (22:57)
[2024-10-17] MEDS: ACETAMINOPHEN 325 MG TAB PO ONE (23:41)
[2024-10-17] MEDS: ONDANSETRON 4MG ORAL DISINTEGRATING TAB PO ONE (23:42)
[2024-10-18 00:08] VITALS: BP 133/75; TEMP 98; O2SAT 100
== END 2024-10-18 00:10 | disposition home or self-care (01) ==
LOC: EDBD 21:42 → M ED 21:42
DX: S06.0X0A Concussion without loss of consciousness, initial encounter (principal); W00.0XXA Fall on same level due to ice and snow, initial encounter; Y92.009 Unspecified place in unspecified non-institutional (private) residence as the place of occurrence of the external cause; Y93.9 Activity, unspecified; Y99.9 Unspecified external cause status; M47.812 Spondylosis without myelopathy or radiculopathy, cervical region; M06.9 Rheumatoid arthritis, unspecified; Z79.899 Other long term (current) drug therapy; Z88.1 Allergy status to other antibiotic agents; Z88.8 Allergy status to other drugs, medicaments and biological substances; Z91.040 Latex allergy status

== ENCOUNTER → 2024-12-01 | Outpatient (REF) | payer OTHER ==
[~2024-12-01] MED LIST changes: +ONDA-282 PO
[2024-12-01 15:30] LABS: FERRITIN 9.5 NG/ML (7.3-270.7)
== END ==
LOC: M LAB REF 14:27
PROVIDERS: ATTEND Internal Medicine
DX: D64.9 Anemia, unspecified (principal)